=== PATIENT | female | born 1940 | race Caucasian/White ===

== ENCOUNTER → 2016-11-24 | Outpatient (CLI) | payer MEDICARE, MEDICAID | LOC: RAD 12:46 | PROVIDERS: ATTEND Internal Medicine Medical Oncology | DX: C34.90 Malignant neoplasm of unspecified part of unspecified bronchus or lung (principal) | CPT/HCPCS: 71260 ==

== ENCOUNTER → 2017-02-24 | Outpatient (CLI) | payer MEDICARE, MEDICAID | LOC: RAD 08:52 | PROVIDERS: ATTEND Internal Medicine Medical Oncology | DX: C34.91 Malignant neoplasm of unspecified part of right bronchus or lung (principal); C79.31 Secondary malignant neoplasm of brain | CPT/HCPCS: 70553; 71020; A9577 ==

== ENCOUNTER 2017-02-28 09:57 | Emergency (ER) | payer MEDICARE, MEDICAID ==
[2017-02-28] MEDS ORDERED: ASPIRIN 81 MG TABLET, CHEWABLE PO ONE (10:28)
--- NOTE | 2017-02-28 10:36 | ER Document Report ---
ED Medical Screen (RME) - General Chief Complaint: Chest Pressure Stated Complaint: CHEST PAIN Notes: 76-year-old female history of lung cancer with metastasis presents with complaints of 4 week duration of intermittent chest pressure sensation associated with shortness of breath diaphoresis. Patient has been receiving chemotherapy last 2 months ago. Patient notes she has a history of high blood pressure cholesterol and diabetes, no known CAD however history irregular heartbeat I have greeted and performed a rapid initial assessment of this patient. A comprehensive ED assessment and evaluation of the patient, analysis of test results and completion of the medical decision making process will be conducted by additional ED providers. PHYSICAL EXAMINATION: GENERAL: Chronically frail but well-appearing no acute distress HEAD: Atraumatic, normocephalic. EYES: Pupils equal round extraocular movements intact, conjunctiva are normal. ENT: Nares patent NECK: Normal range of motion LUNGS: No respiratory distress Musculoskeletal: Normal range of motion NEUROLOGICAL: Normal speech, normal gait. PSYCH: Normal mood, normal affect. SKIN: Warm, Dry, normal turgor, no rashes or lesions noted. TRAVEL OUTSIDE OF THE [place] IN LAST 30 DAYS: No - Related Data Allergies/Adverse Reactions: No Known Allergies Allergy (Verified 05/04/14 14:56) Past Medical History - Past Medical History Cardiac Medical History: Reports: Hx Hypercholesterolemia, Hx Hypertension Denies: Hx Coronary Artery Disease, Hx Heart Attack Pulmonary Medical History: Reports: Hx COPD Denies: Hx Asthma, Hx Bronchitis, Hx Pneumonia Neurological Medical History: Reports: Hx Cerebrovascular Accident - NO DEFICIT. Denies: Hx Seizures Endocrine Medical History: Reports: Hx Diabetes Mellitus Type 1 Renal/ Medical History: Denies: Hx Peritoneal Dialysis Musculoskeltal Medical History: Reports Hx Arthritis - GENERALIZED Past Surgical History: Reports: Hx Cholecystectomy, Hx Thyroid Surgery, Hx Tubal Ligation - Immunizations Hx Diphtheria, Pertussis, Tetanus Vaccination: Yes Physical Exam - Vital signs Vitals: Temp Pulse Resp BP Pulse Ox 98.0 F 88 16 155/82 H 97 02/28/17 10:02/28/17 10:02/28/17 10:02/28/17 10:02/28/17 10:04 Course - Vital Signs Vital signs: Temp Pulse Resp BP Pulse Ox 98.0 F 88 16 155/82 H 97 02/28/17 10:02/28/17 10:04 02/28/17 10:04 02/28/17 10:04 02/28/17 10:04
--- NOTE | 2017-02-28 10:47 | EKG REPORT ---
SEVERITY:- ABNORMAL ECG - SINUS RHYTHM RIGHT BUNDLE BRANCH BLOCK : Confirmed by: Leisa Locke 28-Feb-2017 10:46:28
--- NOTE | 2017-02-28 10:51 | ER Document Report ---
ED Cardiac - General Mode of Arrival: Ambulatory Information source: Patient TRAVEL OUTSIDE OF THE [place] IN LAST 30 DAYS: No - HPI Patient complains to provider of: Chest pain - "pressure" Quality of pain: Pressure Chest pain radiation location: None Cardiac risk factors: Diabetes, Hypertension, Dyslipidemia Associated symptoms: Other - see notes above <SINDI MEDELLIN - Last Filed: 02/28/17 11:04> <CUONG MARTINEZ - Last Filed: 02/28/17 13:35> - General Chief Complaint: Chest Pressure Stated Complaint: CHEST PAIN Notes: 76 year old female with history of lung cancer, diabetes, hypertension, and hyperlipidemia presents to the ED complaining of intermittent chest pressure that has been present since she started chemo and radiation in November 2016. Patient reports increased shortness of breath, diaphoresis, and nausea when having the chest pressure episodes, but denies any chest pressure radiation. Patient reports that yesterday she was experiencing cold sweats. Patient denies leg swelling or pain. Patient denies having a stress test performed or being on any blood thinning medications. Patient reports that she forgot to take her blood pressure medication last night and her thyroid medication this morning. Patient was having her blood work performed earlier this morning when she complained of the chest pressure and was sent to the ED. Patient denies any current chest pressure. Patient's primary care provider is Dr. More and oncologist is Dr. Brambila. (SINDI MEDELLIN) - Related Data Allergies/Adverse Reactions: No Known Allergies Allergy (Verified 05/04/14 14:56) Past Medical History - General Information source: Patient - Social History Smoking Status: Unknown if Ever Smoked Family History: Reviewed & Not Pertinent Patient has suicidal ideation: No Patient has homicidal ideation: No - Past Medical History Cardiac Medical History: Reports: Hx Hypercholesterolemia, Hx Hypertension Pulmonary Medical History: Reports: Hx COPD Neurological Medical History: Reports: Hx Cerebrovascular Accident - NO DEFICIT Endocrine Medical History: Reports: Hx Diabetes Mellitus Type 1 Malignancy Medical History: Reports: Hx Lung Cancer - November 2016 Musculoskeltal Medical History: Reports Hx Arthritis - GENERALIZED Past Surgical History: Reports: Hx Cholecystectomy, Hx Thyroid Surgery, Hx Tubal Ligation - Immunizations Hx Diphtheria, Pertussis, Tetanus Vaccination: Yes <SINDI MEDELLIN - Last Filed: 02/28/17 11:04> Review of Systems - Review of Systems Constitutional: See HPI, Chills, Diaphoresis - with chest pressure exacerbation EENT: No symptoms reported Cardiovascular: See HPI, Chest pain - "pressure" Respiratory: See HPI, Short of breath - with chest pressure exacerbation Gastrointestinal: See HPI, Nausea - with chest pressure exacerbation Genitourinary: No symptoms reported Female Genitourinary: No symptoms reported Musculoskeletal: No symptoms reported. denies: Leg swelling - no leg tenderness Skin: No symptoms reported Hematologic/Lymphatic: No symptoms reported Neurological/Psychological: No symptoms reported -: Yes All other systems reviewed and negative <SINDI MEDELLIN - Last Filed: 02/28/17 11:04> Physical Exam <SINDI MEDELLIN - Last Filed: 02/28/17 11:04> - Vital signs Interpretation: Normal <CUONG MARTINEZ - Last Filed: 02/28/17 13:35> - Vital signs Vitals: Temp Pulse Resp BP Pulse Ox 98.0 F 88 16 155/82 H 97 02/28/17 10:04 02/28/17 10:04 02/28/17 10:04 02/28/17 10:04 02/28/17 10:04 - Notes Notes: Physical Exam: GENERAL: VS as per nursing doc. Well-appearing, well-nourished and in no acute distress. HEAD: Atraumatic, normocephalic. EYES: Pupils equal round and reactive to light, extraocular movements intact, sclera anicteric, no conjunctival injection or discharge. ENT: Nares patent, oropharynx clear without exudates. Moist mucous membranes. NECK: Normal range of motion, supple without lymphadenopathy. No JVD. No Carotid Bruits. LUNGS: Breath sounds clear to auscultation bilaterally and equal. No wheezes rales or rhonchi. HEART: Normal S1S2. Regular rate and rhythm without murmurs. Equal peripheral pulses. ABDOMEN: Soft, non-tender. EXTREMITIES: Normal range of motion. No calf tenderness. Negative Homans. No edema. NEUROLOGICAL: Cranial nerves grossly intact. Normal speech. Normal sensory and motor exams. No gross cerebellar abnormalities. PSYCH: Normal mood, normal affect. SKIN: Warm, dry, no cyanosis, no splinter hemorrhages. Cap refill < 2 sec. (CUONG MARTINEZ) Course <SINDI MEDELLIN - Last Filed: 02/28/17 11:04> - Laboratory Result Diagrams: 02/28/17 11:47 02/28/17 11:47 - Diagnostic Test Radiology reviewed: Reports reviewed - No evidence of dissection or pulmonary embolus. There is enlargement of the tumor. - EKG Interpretation by Me EKG shows normal: Sinus rhythm Rate: Normal - Heart rate 82, normal sinus rhythm, nonspecific ST abnormalities , right bundle branch block <CUONG MARTINEZ - Last Filed: 02/28/17 13:35> - Re-evaluation Re-evalutation: 02/28/17 13:32 Reviewed findings with the patient. She has not had any symptoms here such as she had prior. Discussed with her consideration for cardiac ischemia. Offered her admission for further cardiac evaluation. With the risks understood she deferred, which seems reasonable as she states she would not go through with invasive procedures if something was found. She wants to be discharged home. She will follow up with her oncologist. (CUONG MARTINEZ) - Vital Signs Vital signs: Temp Pulse Resp BP Pulse Ox 98.0 F 88 19 122/77 97 02/28/17 10:04 02/28/17 10:04 02/28/17 12:00 02/28/17 11:29 02/28/17 12:00 - Laboratory Laboratory results interpreted by me: 02/28/17 02/28/17 11:47 11:47 WBC 11.0 H RDW 15.4 H Glucose 182 H Creatine Kinase 23 L Total Protein 6.0 L Discharge <SINDI MEDELLIN - Last Filed: 02/28/17 11:04> <CUONG MARTINEZ - Last Filed: 02/28/17 13:35> - Discharge Clinical Impression: Chest pain, Dyspnea Condition: Good Disposition: HOME, SELF-CARE Instructions: Chest Pain of Unclear Cause ([facility]) Additional Instructions: Return for worsening or concern. Follow-up with your primary care physician or oncologist. Referrals: LISSET ANGELES MD [Primary Care Provider] - Follow up in 3-5 days Scribe Attestation: 02/28/17 13:35 I personally performed the services described in the documentation, reviewed and edited the documentation which was dictated to the scribe in my presence, and it accurately records my words and actions. (CUONG MARTINEZ) Scribe Documentation - Scribe Written by Oscar:: Oscar Hood, 02/28/2017 [id number] acting as scribe for :: Yordy <SINDI MEDELLIN - Last Filed: 02/28/17 11:04>
[2017-02-28 12:08] LABS: ABSOLUTE BASOPHILS # (AUTO) 0.1 10^3/uL (0.0-0.2); ABSOLUTE EOSINOPHILS # (AUTO) 0.1 10^3/uL (0.0-0.6); ABSOLUTE LYMPHOCYTES (AUTO) 2.6 10^3/uL (0.5-4.7); ABSOLUTE MONOCYTES (AUTO) 0.5 10^3/uL (0.1-1.4); ABSOLUTE NEUT (AUTO) 7.7 10^3/uL (1.7-8.2); BASOPHILS % (AUTO) 0.8 % (0-2); HEMATOCRIT 39.7 % (36.0-47.0); HEMOGLOBIN 13.4 g/dL (12.0-15.5); HGB HCT DIFFERENCE 0.5; LYMPHOCYTES % (AUTO) 23.3 % (13-45); MEAN CORPUSCULAR HEMOGLOBIN 31.6 pg (27.0-33.4); MEAN CORPUSCULAR HGB CONC 33.7 g/dL (32.0-36.0); MEAN CORPUSCULAR VOLUME 94 fl (80-97); MONOCYTES % (AUTO) 4.9 % (3-13); RED BLOOD COUNT 4.23 10^6/uL (3.72-5.28); RED CELL DISTRIBUTION WIDTH 15.4 % (11.5-14.0)
[2017-02-28 12:14] LABS: ALANINE AMINOTRANSFERASE 22 U/L (9-52); ALBUMIN 3.7 g/dL (3.5-5.0); ALKALINE PHOSPHATASE 73 U/L (38-126); ANION GAP 12 (5-19); ASPARTATE AMINO TRANSFERASE 21 U/L (14-36); BILIRUBIN,DIRECT 0.2 mg/dL (0.0-0.4); BILIRUBIN,TOTAL 0.3 mg/dL (0.2-1.3); BLOOD UREA NITROGEN 10 mg/dL (7-20); CALCIUM 9.6 mg/dL (8.4-10.2); CARBON DIOXIDE 24 mmol/L (22-30); CHLORIDE 106 mmol/L (98-107); CREATINE KINASE 23 U/L (30-135); CREATININE RESULT 0.58 mg/dL (0.52-1.25); GLUCOSE 182 mg/dL (75-110); POTASSIUM 4.1 mmol/L (3.6-5.0); SODIUM 141.6 mmol/L (137-145)
[2017-02-28 12:22] LABS: CREATINE KINASE MB 0.29 ng/mL (<4.55)
[2017-02-28 12:24] LABS: TROPONIN I < 0.012 ng/mL
[2017-02-28 13:48] VITALS: BP 141/73
== END 2017-02-28 13:50 | disposition home or self-care (01) ==
LOC: ER 09:57
DX: R07.9 Chest pain, unspecified (principal); R06.00 Dyspnea, unspecified; R11.0 Nausea; R61 Generalized hyperhidrosis; E11.9 Type 2 diabetes mellitus without complications; I10 Essential (primary) hypertension; E78.5 Hyperlipidemia, unspecified; Z85.118 Personal history of other malignant neoplasm of bronchus and lung; Z79.899 Other long term (current) drug therapy; E78.00 Pure hypercholesterolemia, unspecified; Z86.73 Personal history of transient ischemic attack (TIA), and cerebral infarction without residual deficits; Z90.49 Acquired absence of other specified parts of digestive tract; Z98.51 Tubal ligation status
CPT/HCPCS: 36415; 71275; 80053; 82550; 82553; 84484; 85025; 93005; 93010; 99285